=== PATIENT | female | born 1990 | race Caucasian/White ===

== ENCOUNTER 2017-08-21 15:21 | Emergency (ER) | payer OTHER ==
[2017-08-21 15:43] LABS: BASOPHILS % (AUTO) 2 % (0-3); EOSINOPHILS % (AUTO) 1 % (0-9); HEMATOCRIT 43 % (35-47); MEAN CORPUSCULAR HGB CONC 33.7 gm/dl (32.0-36.0); MEAN CORPUSCULAR VOLUME 88 fL (81-99); MONOCYTES % (AUTO) 8.3 % (0-12)
[2017-08-21 15:57] LABS: APPEARANCE,URINE Clear; BILIRUBIN,URINE NEGATIVE (NEGATIVE); COLOR,URINE Yellow; GLUCOSE, URINE (UA) NEGATIVE (NEGATIVE); KETONES,URINE NEGATIVE (NEGATIVE); LEUKOCYTE ESTERASE ,URINE NEGATIVE (NEGATIVE); NITRATE,URINE NEGATIVE (NEGATIVE); OCCULT BLOOD,URINE 1+ (NEG-TRACE); PH,URINE 6.5; UROBILINOGEN,URINE 0.2 (0.2-1.0 EU)
[2017-08-21 16:06] LABS: ALBUMIN 3.9 gm/dl (3.4-5.0); CALCIUM 9.2 mg/dl (8.5-10.1); POTASSIUM 3.3 mMol/L (3.5-5.1); THYROID STIMULATING HORMONE 0.593 uIU/ml (0.358-3.740)
[2017-08-21 16:13] LABS: AMPHETAMINES NEGATIVE (NEGATIVE); METHADONE NEGATIVE (NEGATIVE); OPIATES(OP13) NEGATIVE (NEGATIVE); OXYCODONE(OXY) NEGATIVE (NEGATIVE); PROPOXYPHENE(PPX) NEGATIVE (NEGATIVE); RBC,URINE 0-3 (0-3AV/HPF); TRICYCLIC ANTIDEPRESSANTS NEGATIVE (NEGATIVE); WBC,URINE 0-2 (0-5AV/HPF)
[2017-08-21 16:14] LABS: SALICYLATE < 2.8 mg/dl (2.8-30.0)
[2017-08-21] MEDS ORDERED: LORAZEPAM 2 MG/ML SOL IV ONE (16:22)
[2017-08-21] MEDS ORDERED: LORAZEPAM 2 MG/ML SOL ONE (16:29)
[2017-08-21] MEDS: SODIUM CHLORIDE 0.9% 1000 ML SOL IV SCH ×2 (16:36→17:56)
[2017-08-21] MEDS ORDERED: POTASSIUM CHLORIDE 10 MEQ TER PO ONE (19:03)
[2017-08-21] MEDS ORDERED: POTASSIUM CHLORIDE 10 MEQ TER ONE (19:18)
[2017-08-21 21:34] VITALS: BP 137/101; PULSE 93; RESP 18; TEMP 97.5; O2SAT 100
== END 2017-08-21 23:49 | disposition short-term general hospital (02) ==
LOC: ED 15:21
DX: R45.851 Suicidal ideations (principal); F10.229 Alcohol dependence with intoxication, unspecified; Y90.8 Blood alcohol level of 240 mg/100 ml or more; K70.10 Alcoholic hepatitis without ascites; E87.6 Hypokalemia
CPT/HCPCS: 99284 ×3; 80305; 80307 ×4; 81001; 84443; 84703; 85025; J2060; 80053

== ENCOUNTER 2017-09-04 00:34 | Emergency (ER) | payer OTHER ==
[2017-09-04 00:35] VITALS: O2SAT 100
[2017-09-04 00:45] VITALS: RESP 20; TEMP 98.9
[2017-09-04 01:14] LABS: APPEARANCE,URINE Clear; BILIRUBIN,URINE NEGATIVE (NEGATIVE); COLOR,URINE Yellow; GLUCOSE, URINE (UA) NEGATIVE (NEGATIVE); KETONES,URINE NEGATIVE (NEGATIVE); LEUKOCYTE ESTERASE ,URINE 2+ (NEGATIVE); NITRATE,URINE NEGATIVE (NEGATIVE); OCCULT BLOOD,URINE 2+ (NEG-TRACE); UROBILINOGEN,URINE 0.2 (0.2-1.0 EU)
[2017-09-04 01:17] LABS: RBC,URINE 0-2 (0-3AV/HPF)
[2017-09-04 01:18] LABS: WBC,URINE 30-40 (0-5AV/HPF)
[2017-09-04 01:22] VITALS: BP 150/115; PULSE 134
[2017-09-04] MEDS: PHENAZOPYRIDINE HCL 100 MG TAB PO ONE (01:29)
[2017-09-04] MEDS: SULFAMETHOXAZOLE/TRIMETHOPRI 800/160 MG PO ONE (01:30)
[2017-09-04] MEDS ORDERED: SULFAMETHOXAZOLE/TRIMETHOPRI 800/160 MG ONE (01:39)
== END 2017-09-04 01:52 | disposition home or self-care (01) ==
LOC: ED 00:34
DX: R30.9 Painful micturition, unspecified (principal)
CPT/HCPCS: 81001; 99282; 99283

== ENCOUNTER 2017-09-09 06:58 | Emergency (ER) | payer OTHER ==
[2017-09-09 07:07] VITALS: TEMP 97.6
[2017-09-09] MEDS ORDERED: ONDANSETRON HCL 4 MG/2 ML SOL ONE (07:10)
[2017-09-09] MEDS: SODIUM CHLORIDE 0.9% FLUSH 10 ML SOL IV PRN ×2 (07:10→08:43)
[2017-09-09] MEDS ORDERED: ONDANSETRON HCL 4 MG/2 ML SOL IV ONE (07:10)
[2017-09-09] MEDS ORDERED: SODIUM CHLORIDE 0.9% 1000ML 1,000 ML IV ONE (07:10)
[2017-09-09 07:48] LABS: ALBUMIN 3.4 gm/dl (3.4-5.0); CALCIUM 8.3 mg/dl (8.5-10.1); POTASSIUM 3.7 mMol/L (3.5-5.1)
[2017-09-09 07:52] LABS: BASOPHILS % (AUTO) 1 % (0-3); EOSINOPHILS % (AUTO) 0 % (0-9); HEMATOCRIT 41 % (35-47); MEAN CORPUSCULAR HGB CONC 32.8 gm/dl (32.0-36.0); MEAN CORPUSCULAR VOLUME 91 fL (81-99); MONOCYTES % (AUTO) 7.2 % (0-12); NEUTROPHILS % (AUTO) 78.7 % (37-80)
[2017-09-09 08:24] LABS: APPEARANCE,URINE Slightly Cloudy; BILIRUBIN,URINE 1+ (NEGATIVE); COLOR,URINE Dark yellow; GLUCOSE, URINE (UA) NEGATIVE (NEGATIVE); KETONES,URINE TRACE (NEGATIVE); LEUKOCYTE ESTERASE ,URINE TRACE (NEGATIVE); NITRATE,URINE NEGATIVE (NEGATIVE); OCCULT BLOOD,URINE 1+ (NEG-TRACE); PH,URINE 6.5; UROBILINOGEN,URINE 0.2 (0.2-1.0 EU)
[2017-09-09 08:39] LABS: ICTOTEST,URINE NEGATIVE (NEGATIVE)
[2017-09-09] MEDS ORDERED: PROMETHAZINE HYDROCHLORIDE 25 MG/ML SOL IV ONE (08:43)
[2017-09-09] MEDS ORDERED: PROMETHAZINE HYDROCHLORIDE 25 MG/ML SOL ONE (08:45)
[2017-09-09] MEDS ORDERED: PANTOPRAZOLE SODIUM 40 MG/10 ML PDS IV ONE (08:58)
[2017-09-09] MEDS ORDERED: ALUMINUM/MAGNESIUM 30 ML SUS PO ONE (08:58)
[2017-09-09] MEDS ORDERED: PANTOPRAZOLE SODIUM 40 MG/10 ML PDS ONE (08:58)
[2017-09-09] MEDS ORDERED: ALUMINUM/MAGNESIUM 30 ML SUS ONE (08:59)
[2017-09-09 09:08] VITALS: RESP 18
[2017-09-09 09:42] VITALS: BP 117/80; PULSE 78; O2SAT 99
== END 2017-09-09 10:09 | disposition home or self-care (01) ==
LOC: ED 06:58
DX: K29.20 Alcoholic gastritis without bleeding (principal); Z87.440 Personal history of urinary (tract) infections
CPT/HCPCS: 36415; 80053; 81001; 84703; 85025; 96365; 96374; 96375; 99284; 99285; J2405; J2550

== ENCOUNTER 2017-12-08 11:17 | Emergency (ER) | payer SELFPAY ==
[2017-12-08] MEDS ORDERED: LORAZEPAM 2 MG/ML SOL IV ONE (11:44)
[2017-12-08 12:01] LABS: BASOPHILS % (AUTO) 2 % (0-3); EOSINOPHILS % (AUTO) 0 % (0-9); HEMATOCRIT 44 % (35-47); MEAN CORPUSCULAR HGB CONC 33.2 gm/dl (32.0-36.0); MEAN CORPUSCULAR VOLUME 94 fL (81-99); MONOCYTES % (AUTO) 5.9 % (0-12)
[2017-12-08 12:02] VITALS: RESP 20; TEMP 98.1
[2017-12-08 12:06] LABS: APPEARANCE,URINE Clear; BILIRUBIN,URINE NEGATIVE (NEGATIVE); COLOR,URINE Yellow; GLUCOSE, URINE (UA) NEGATIVE (NEGATIVE); KETONES,URINE 2+ (NEGATIVE); LEUKOCYTE ESTERASE ,URINE TRACE (NEGATIVE); NITRATE,URINE NEGATIVE (NEGATIVE); OCCULT BLOOD,URINE 2+ (NEG-TRACE); PH,URINE 6.5; UROBILINOGEN,URINE 0.2 (0.2-1.0 EU)
[2017-12-08] MEDS ORDERED: LORAZEPAM 0.5 MG TAB PO ONE (12:10)
[2017-12-08] MEDS ORDERED: LORAZEPAM 0.5 MG TAB ONE (12:14)
[2017-12-08 12:20] VITALS: BP 136/96
[2017-12-08 12:22] LABS: ALBUMIN 4.3 gm/dl (3.4-5.0); ALT 232 IU/L (14-63); CALCIUM 8.7 mg/dl (8.5-10.1); GLOM FILT RATE 88 mL/min (>60); POTASSIUM 4.2 mMol/L (3.5-5.1); SODIUM 142 mMol/L (136-145)
[2017-12-08 13:14] VITALS: PULSE 100; O2SAT 97
== END 2017-12-08 13:56 | disposition short-term general hospital (02) | DRG 897 ==
LOC: ED 11:17
DX: F10.920 Alcohol use, unspecified with intoxication, uncomplicated (principal); F41.9 Anxiety disorder, unspecified; Y90.8 Blood alcohol level of 240 mg/100 ml or more; Z32.02 Encounter for pregnancy test, result negative
CPT/HCPCS: 36415; 80053; 80307; 81001; 84484; 84703; 85025; 93005; 99284; A9270-GY

== ENCOUNTER 2018-07-27 10:30 | Emergency (ER) | payer MEDICAID ==
[2018-07-27] MEDS ORDERED: ONDANSETRON HCL 4 MG/2 ML SOL IV ONE ×2 (10:37→11:53)
[2018-07-27] MEDS ORDERED: THIAMINE 100 MG/ML 100 MG/ML SOL IV ONE (10:37)
[2018-07-27] MEDS ORDERED: SODIUM CHLORIDE 0.9% FLUSH 10 ML SOL IV PRN (10:37)
[2018-07-27] MEDS ORDERED: SODIUM CHLORIDE 0.9% 1000ML 1,000 ML IV ONE (10:37)
[2018-07-27] MEDS ORDERED: THIAMINE 100 MG/ML 100 MG/ML SOL ONE (10:42)
[2018-07-27 10:43] LABS: BASOPHILS % (AUTO) 1 % (0-3); EOSINOPHILS % (AUTO) 0 % (0-9); HEMATOCRIT 45 % (35-47); HEMOGLOBIN 14.3 gm/dl (12.0-15.5); LYMPHOCYTES % (AUTO) 18.1 % (10-50); MEAN CORPUSCULAR HEMOGLOBIN 26.4 pg (27.0-32.0); MEAN CORPUSCULAR HGB CONC 31.6 gm/dl (32.0-36.0); MEAN CORPUSCULAR VOLUME 84 fL (81-99); MONOCYTES % (AUTO) 4.5 % (0-12); NEUTROPHILS % (AUTO) 75.9 % (37-80)
[2018-07-27] MEDS ORDERED: ONDANSETRON HCL 4 MG/2 ML SOL ONE (10:43)
[2018-07-27 11:10] LABS: ALBUMIN 3.7 gm/dl (3.4-5.0); BILIRUBIN,TOTAL 0.9 mg/dl (0.2-1.0); CALCIUM 8.2 mg/dl (8.5-10.1); CREATININE 0.92 mg/dl (0.60-1.00); THYROID STIMULATING HORMONE 0.777 uIU/ml (0.358-3.740); TOTAL PROTEIN 7.8 gm/dl (6.4-8.2)
[2018-07-27 11:10] LABS: APPEARANCE,URINE Clear; BILIRUBIN,URINE NEGATIVE (NEGATIVE); COLOR,URINE Yellow; GLUCOSE, URINE (UA) NEGATIVE (NEGATIVE); KETONES,URINE NEGATIVE (NEGATIVE); LEUKOCYTE ESTERASE ,URINE TRACE (NEGATIVE); NITRATE,URINE NEGATIVE (NEGATIVE); OCCULT BLOOD,URINE 1+ (NEG-TRACE); UROBILINOGEN,URINE 0.2 (0.2-1.0 EU)
[2018-07-27 11:17] LABS: CARBON DIOXIDE 24.1 mEq/L (21-32); POTASSIUM 3.2 mMol/L (3.5-5.1)
[2018-07-27 11:18] LABS: ALCOHOL 0.273 gm/dl (0.000-0.08)
[2018-07-27] MEDS ORDERED: LORAZEPAM 0.5 MG TAB PO PRN (11:20)
[2018-07-27] MEDS ORDERED: LORAZEPAM 0.5 MG TAB ONE (11:21)
[2018-07-27 11:28] LABS: AMPHETAMINES NEGATIVE (NEGATIVE); BACTERIA 1+ (< 1+); BARBITUATES NEGATIVE (NEGATIVE); BENZODIAZEPINES NEGATIVE (NEGATIVE); CANNABINOL(THC) POSITIVE (NEGATIVE); COCAINE(COC) NEGATIVE (NEGATIVE); CRYSTALS NEGATIVE (0-3 AVE/HPF); METHADONE NEGATIVE (NEGATIVE); OPIATES(OPI) NEGATIVE (NEGATIVE); PROPOXYPHENE(PPX) NEGATIVE (NEGATIVE); RBC,URINE NEG (0-3AV/HPF); TRICYCLIC ANTIDEPRESSANTS NEGATIVE (NEGATIVE)
[2018-07-27 11:29] LABS: METHAMPHETAMINES NEGATIVE (NEGATIVE); OXYCODONE(OXY) NEGATIVE (NEGATIVE)
[2018-07-27] MEDS ORDERED: ONDANSETRON 4 MG ODT BU ONE (11:57)
[2018-07-27] MEDS ORDERED: POTASSIUM CHLORIDE 10 MEQ TER ONE (11:58)
[2018-07-27] MEDS ORDERED: ONDANSETRON 4 MG ODT ONE (11:58)
[2018-07-27] MEDS: POTASSIUM CHLORIDE 10 MEQ TER PO SCH ×2 (12:00→15:00)
[2018-07-27 14:09] VITALS: TEMP 97
[2018-07-27] MEDS ORDERED: PROCHLORPERAZINE MALEATE 5 MG TAB ONE (15:27)
[2018-07-27] MEDS ORDERED: PROCHLORPERAZINE MALEATE 5 MG TAB PO ONE (15:30)
[2018-07-27 15:47] VITALS: BP 118/74; PULSE 84; RESP 20; O2SAT 99
== END 2018-07-27 15:32 | disposition short-term general hospital (02) | DRG 897 ==
LOC: ED 10:30
DX: F10.120 Alcohol abuse with intoxication, uncomplicated (principal)
CPT/HCPCS: 80053; 80305; 80307; 81001; 83735; 84443; 84703; 85025; 87088; 96365; 96374; 96375; 99283; 99285; J2405; A9270-GY; J3411

== ENCOUNTER 2018-08-31 21:56 | Emergency (ER) | payer MEDICAID ==
[2018-08-31] MEDS ORDERED: AUGMENTIN(FRIDGE) 400 MG/5 ML PO ONE (22:25)
[2018-08-31] MEDS ORDERED: TRAMADOL HYDROCHLORIDE 50 MG TAB PO ONE (22:27)
[2018-08-31 22:29] VITALS: BP 115/87; PULSE 86; RESP 20; TEMP 97.4; O2SAT 100
[2018-08-31] MEDS ORDERED: TRAMADOL HYDROCHLORIDE 50 MG TAB ONE (22:32)
[2018-08-31] MEDS ORDERED: AUGMENTIN(FRIDGE) 400 MG/5 ML ONE (22:34)
== END 2018-08-31 22:50 | disposition home or self-care (01) | DRG 159 ==
LOC: ED 21:56
DX: K04.7 Periapical abscess without sinus (principal)
CPT/HCPCS: 99282; A9270-GY

== ENCOUNTER 2018-11-02 14:48 | Emergency (ER) | payer MEDICAID ==
[2018-11-02] MEDS ORDERED: NICOTINE 21 MG PATCH TD SCH (15:15)
[2018-11-02 17:01] LABS: BASOPHILS % (AUTO) 1 % (0-3); EOSINOPHILS % (AUTO) 1 % (0-9); HEMATOCRIT 44 % (35-47); HEMOGLOBIN 13.8 gm/dl (12.0-15.5); LYMPHOCYTES % (AUTO) 26.5 % (10-50); MEAN CORPUSCULAR HEMOGLOBIN 26.9 pg (27.0-32.0); MEAN CORPUSCULAR HGB CONC 31.3 gm/dl (32.0-36.0); MEAN CORPUSCULAR VOLUME 86 fL (81-99); MONOCYTES % (AUTO) 5.9 % (0-12); NEUTROPHILS % (AUTO) 65.8 % (37-80)
[2018-11-02 17:10] LABS: APPEARANCE,URINE Clear; BILIRUBIN,URINE NEGATIVE (NEGATIVE); COLOR,URINE Yellow; GLUCOSE, URINE (UA) NEGATIVE (NEGATIVE); KETONES,URINE NEGATIVE (NEGATIVE); LEUKOCYTE ESTERASE ,URINE NEGATIVE (NEGATIVE); NITRATE,URINE NEGATIVE (NEGATIVE); OCCULT BLOOD,URINE TRACE LYSED (NEG-TRACE); PH,URINE 6.5; UROBILINOGEN,URINE 0.2 (0.2-1.0 EU)
[2018-11-02 17:21] LABS: ALBUMIN 3.5 gm/dl (3.4-5.0); ALKALINE PHOSPHATASE 117 IU/L (46-116); ALT 26 IU/L (14-63); AST 20 IU/L (15-37); BILIRUBIN,TOTAL 0.2 mg/dl (0.2-1.0); BLOOD UREA NITROGEN 12 mg/dl (7-18); CARBON DIOXIDE 26.6 mEq/L (21-32); CHLORIDE 106 mMol/L (98-107); CREATININE 0.88 mg/dl (0.60-1.00); GLUCOSE 110 mg/dl (74-106); POTASSIUM 3.9 mMol/L (3.5-5.1); SALICYLATE < 2.8 mg/dl (2.8-30.0); SODIUM 143 mMol/L (136-145); TOTAL PROTEIN 7.7 gm/dl (6.4-8.2)
[2018-11-02 17:32] LABS: BACTERIA NEGATIVE (< 1+); BARBITUATES NEGATIVE (NEGATIVE); BENZODIAZEPINES NEGATIVE (NEGATIVE); CANNABINOL(THC) POSITIVE (NEGATIVE); CRYSTALS NEGATIVE (0-3 AVE/HPF); EPITHELIAL CELLS 0-1 (SQUAMOUS); METHADONE NEGATIVE (NEGATIVE); OPIATES(OPI) NEGATIVE (NEGATIVE); RBC,URINE NEG (0-3AV/HPF); TRICYCLIC ANTIDEPRESSANTS NEGATIVE (NEGATIVE); WBC,URINE 0-2 (0-5AV/HPF)
[2018-11-02 17:33] LABS: AMPHETAMINES NEGATIVE (NEGATIVE); COCAINE(COC) NEGATIVE (NEGATIVE); METHAMPHETAMINES NEGATIVE (NEGATIVE); OXYCODONE(OXY) NEGATIVE (NEGATIVE); PROPOXYPHENE(PPX) NEGATIVE (NEGATIVE)
[2018-11-02 17:36] LABS: ACETAMINOPHEN < 2 ug/ml (10-30); ALCOHOL 0.339 gm/dl (0.000-0.08)
[2018-11-02] MEDS ORDERED: LORAZEPAM 0.5 MG TAB PO ONE (19:54)
[2018-11-02] MEDS ORDERED: LORAZEPAM 0.5 MG TAB ONE (19:56)
[2018-11-02 23:51] VITALS: BP 120/75; PULSE 110; RESP 16; TEMP 97.2; O2SAT 96
== END 2018-11-03 00:24 | disposition short-term general hospital (02) | DRG 880 ==
LOC: ED 14:48
DX: R45.851 Suicidal ideations (principal)
CPT/HCPCS: 36415; 80053; 80305; 80307; 81001; 85025; 99283; A9270-GY

== ENCOUNTER 2018-11-21 12:04 | Emergency (ER) | payer MEDICAID ==
[2018-11-21 12:38] LABS: BASOPHILS % (AUTO) 2 % (0-3); EOSINOPHILS % (AUTO) 1 % (0-9); HEMATOCRIT 44 % (35-47); HEMOGLOBIN 14.3 gm/dl (12.0-15.5); LYMPHOCYTES % (AUTO) 27.1 % (10-50); MEAN CORPUSCULAR HEMOGLOBIN 27.5 pg (27.0-32.0); MEAN CORPUSCULAR HGB CONC 32.8 gm/dl (32.0-36.0); MEAN CORPUSCULAR VOLUME 84 fL (81-99); MONOCYTES % (AUTO) 8.7 % (0-12); NEUTROPHILS % (AUTO) 61.6 % (37-80)
[2018-11-21 12:46] LABS: APPEARANCE,URINE Clear; BILIRUBIN,URINE NEGATIVE (NEGATIVE); COLOR,URINE Light yellow; GLUCOSE, URINE (UA) NEGATIVE (NEGATIVE); KETONES,URINE NEGATIVE (NEGATIVE); LEUKOCYTE ESTERASE ,URINE TRACE (NEGATIVE); NITRATE,URINE NEGATIVE (NEGATIVE); OCCULT BLOOD,URINE NEGATIVE (NEG-TRACE); PH,URINE 5.5; UROBILINOGEN,URINE 0.2 (0.2-1.0 EU)
[2018-11-21 12:53] LABS: AMPHETAMINES NEGATIVE (NEGATIVE); BACTERIA 1+ (< 1+); BARBITUATES NEGATIVE (NEGATIVE); BENZODIAZEPINES NEGATIVE (NEGATIVE); CANNABINOL(THC) NEGATIVE (NEGATIVE); COCAINE(COC) NEGATIVE (NEGATIVE); CRYSTALS NEGATIVE (0-3 AVE/HPF); METHADONE NEGATIVE (NEGATIVE); METHAMPHETAMINES NEGATIVE (NEGATIVE); OPIATES(OPI) NEGATIVE (NEGATIVE); OXYCODONE(OXY) NEGATIVE (NEGATIVE); PROPOXYPHENE(PPX) NEGATIVE (NEGATIVE); RBC,URINE 0-2 (0-3AV/HPF); TRICYCLIC ANTIDEPRESSANTS NEGATIVE (NEGATIVE)
[2018-11-21 12:59] LABS: ALBUMIN 3.7 gm/dl (3.4-5.0); ALKALINE PHOSPHATASE 115 IU/L (46-116); ALT 46 IU/L (14-63); AST 19 IU/L (15-37); BILIRUBIN,TOTAL 0.1 mg/dl (0.2-1.0); BLOOD UREA NITROGEN 8 mg/dl (7-18); CALCIUM 9.2 mg/dl (8.5-10.1); CARBON DIOXIDE 23.3 mEq/L (21-32); CHLORIDE 107 mMol/L (98-107); CREATININE 0.81 mg/dl (0.60-1.00); GLUCOSE 115 mg/dl (74-106); POTASSIUM 3.3 mMol/L (3.5-5.1); SALICYLATE < 2.8 mg/dl (2.8-30.0); SODIUM 145 mMol/L (136-145); THYROID STIMULATING HORMONE 1.434 uIU/ml (0.358-3.740)
[2018-11-21 13:01] LABS: ACETAMINOPHEN < 2 ug/ml (10-30); ALCOHOL 0.263 gm/dl (0.000-0.08)
[2018-11-21] MEDS ORDERED: POTASSIUM CHLORIDE 10 MEQ TER PO ONE (14:51)
[2018-11-21] MEDS ORDERED: POTASSIUM CHLORIDE 10 MEQ TER ONE (15:03)
[2018-11-21] MEDS ORDERED: SODIUM CHLORIDE 0.9% 1000ML 1,000 ML IV NR (15:30)
[2018-11-21] MEDS ORDERED: ACETAMINOPHEN 500 MG 500 MG TAB PO ONE (15:30)
[2018-11-21] MEDS ORDERED: ACETAMINOPHEN 500 MG 500 MG TAB ONE (15:30)
[2018-11-21] MEDS ORDERED: SODIUM CHLORIDE 0.9% FLUSH 10 ML SOL IV PRN (15:45)
[2018-11-21 15:50] VITALS: RESP 18; O2SAT 98
[2018-11-21] MEDS ORDERED: SODIUM CHLORIDE 0.9% 1000ML 1,000 ML IV ONE (17:12)
[2018-11-21] MEDS ORDERED: LORAZEPAM 0.5 MG TAB PO ONE (19:23)
[2018-11-21] MEDS ORDERED: LORAZEPAM 0.5 MG TAB ONE (19:24)
[2018-11-21 20:22] VITALS: BP 139/94; PULSE 99; TEMP 98.1
== END 2018-11-21 20:20 | disposition short-term general hospital (02) | DRG 880 ==
LOC: ED 12:04
DX: R45.851 Suicidal ideations (principal); F10.129 Alcohol abuse with intoxication, unspecified; Y90.8 Blood alcohol level of 240 mg/100 ml or more
CPT/HCPCS: 36415; 80053; 80305; 80307; 81001; 84443; 84703; 85025; 96365; 96366; 99283; 99285; A9270-GY

== ENCOUNTER 2018-12-20 19:04 | Emergency (ER) | payer MEDICAID, OTHER ==
[2018-12-20] MEDS ORDERED: SODIUM CHLORIDE 0.9% 1000ML 1,000 ML IV ONE (19:16)
[2018-12-20] MEDS ORDERED: LORAZEPAM 2 MG/ML SOL IV ONE (19:18)
[2018-12-20 19:22] LABS: BASOPHILS % (AUTO) 2 % (0-3); EOSINOPHILS % (AUTO) 1 % (0-9); HEMATOCRIT 47 % (35-47); LYMPHOCYTES % (AUTO) 28.7 % (10-50); MEAN CORPUSCULAR HEMOGLOBIN 26.6 pg (27.0-32.0); MEAN CORPUSCULAR HGB CONC 31.5 gm/dl (32.0-36.0); MEAN CORPUSCULAR VOLUME 84 fL (81-99); MONOCYTES % (AUTO) 5.5 % (0-12); NEUTROPHILS % (AUTO) 62.3 % (37-80)
[2018-12-20 19:23] VITALS: RESP 18
[2018-12-20] MEDS ORDERED: ONDANSETRON HCL 4 MG/2 ML SOL ONE (19:37)
[2018-12-20] MEDS ORDERED: ONDANSETRON HCL 4 MG/2 ML SOL IV ONE (19:38)
[2018-12-20 19:40] LABS: ALBUMIN 3.9 gm/dl (3.4-5.0); ALKALINE PHOSPHATASE 118 IU/L (46-116); ALT 35 IU/L (14-63); AST 23 IU/L (15-37); BILIRUBIN,TOTAL 0.2 mg/dl (0.2-1.0); BLOOD UREA NITROGEN 9 mg/dl (7-18); CALCIUM 8.1 mg/dl (8.5-10.1); CARBON DIOXIDE 24.3 mEq/L (21-32); CHLORIDE 107 mMol/L (98-107); CREATININE 0.85 mg/dl (0.60-1.00); GLUCOSE 106 mg/dl (74-106); POTASSIUM 3.9 mMol/L (3.5-5.1); SODIUM 142 mMol/L (136-145); TOTAL PROTEIN 8.1 gm/dl (6.4-8.2)
[2018-12-20 19:42] LABS: ACETAMINOPHEN < 2 ug/ml (10-30)
[2018-12-20 20:25] LABS: APPEARANCE,URINE Clear; BILIRUBIN,URINE NEGATIVE (NEGATIVE); COLOR,URINE Yellow; GLUCOSE, URINE (UA) NEGATIVE (NEGATIVE); KETONES,URINE NEGATIVE (NEGATIVE); LEUKOCYTE ESTERASE ,URINE NEGATIVE (NEGATIVE); NITRATE,URINE NEGATIVE (NEGATIVE); OCCULT BLOOD,URINE TRACE INTACT (NEG-TRACE); UROBILINOGEN,URINE 0.2 (0.2-1.0 EU)
[2018-12-20 20:33] LABS: AMPHETAMINES NEGATIVE (NEGATIVE); BACTERIA NEGATIVE (< 1+); BARBITUATES NEGATIVE (NEGATIVE); BENZODIAZEPINES NEGATIVE (NEGATIVE); CANNABINOL(THC) NEGATIVE (NEGATIVE); COCAINE(COC) NEGATIVE (NEGATIVE); CRYSTALS NEGATIVE (0-3 AVE/HPF); METHADONE NEGATIVE (NEGATIVE); METHAMPHETAMINES NEGATIVE (NEGATIVE); OPIATES(OPI) NEGATIVE (NEGATIVE); OXYCODONE(OXY) NEGATIVE (NEGATIVE); PROPOXYPHENE(PPX) NEGATIVE (NEGATIVE); RBC,URINE NEG (0-3AV/HPF); TRICYCLIC ANTIDEPRESSANTS NEGATIVE (NEGATIVE); WBC,URINE 0-2 (0-5AV/HPF)
[2018-12-20 21:16] VITALS: TEMP 98
[2018-12-20 23:31] VITALS: BP 117/72; PULSE 79; O2SAT 94
== END 2018-12-20 22:46 | DRG 880 ==
LOC: ED 19:04
DX: R45.851 Suicidal ideations (principal); F10.129 Alcohol abuse with intoxication, unspecified; Y90.8 Blood alcohol level of 240 mg/100 ml or more
CPT/HCPCS: 36415; 80053; 80305; 80307; 81001; 85025; 96365; 96374; 99285; 99291; J2405